=== PATIENT | male | born 1985 | race Caucasian/White ===

== ENCOUNTER 2017-03-15 01:57 | Emergency (ER) | payer OTHER ==
[2017-03-15 02:12] VITALS: BP 124/78; PULSE 72; RESP 18; TEMP 98.1; O2SAT 100
--- NOTE | 2017-03-15 02:45 | ED PDOC ---
Upper Extremity Pain/Injury Time Seen by Provider: 03/15/17 02:19 Chief Complaint (Nursing): Finger,Hand,&Wrist Chief Complaint (Provider): Right hand injury History Per: Patient History/Exam Limitations: no limitations Onset/Duration Of Symptoms: Hrs (x3) Current Symptoms Are (Timing): Still Present Additional Complaint(s): Juancarlos is a 32 y/o male who presents to the ED for evaluation of a hand laceration, sustained around 11:30PM. Patient states he tripped and fell on a wine glass, breaking the fall with his right arm. His hand broke the wine glass , and he had to pull glass pieces from the wound. Last tetanus was 2-3 years ago. PMD: None Past Medical History Reviewed: Historical Data, Nursing Documentation, Vital Signs Vital Signs: Last Vital Signs Temp 98.1 F 03/15/17 02:09 Pulse 72 03/15/17 02:09 Resp 18 03/15/17 02:09 BP 124/78 03/15/17 02:09 Pulse Ox 100 03/15/17 02:09 - Medical History PMH: No Chronic Diseases - Surgical History Other surgeries: Ankle and knee surgery - Family History Family History: States: Unknown Family Hx - Social History Current smoker - smoking cessation education provided: No Alcohol: Social Drugs: Denies - Immunization History Hx Tetanus Toxoid Vaccination: Yes - Allergies Allergies/Adverse Reactions: Allergies Allergy/AdvReac Type Severity Reaction Status Date / Time shellfish derived Allergy ITCHING Verified 03/15/17 02:09 Review of Systems ROS Statement: Except As Marked, All Systems Reviewed And Found Negative Skin: Positive for: Lesions (Laceration to right hand) Physical Exam - Reviewed Nursing Documentation Reviewed: Yes Vital Signs Reviewed: Yes - Physical Exam Appears: Positive for: Well, Non-toxic, No Acute Distress Head Exam: Positive for: ATRAUMATIC, NORMAL INSPECTION, NORMOCEPHALIC Skin: Positive for: Normal Color, Warm, Dry Eye Exam: Positive for: EOMI, Normal appearance, PERRL Neck: Positive for: Normal, Supple Cardiovascular/Chest: Positive for: Regular Rate, Rhythm. Negative for: Murmur Respiratory: Positive for: Normal Breath Sounds. Negative for: Respiratory Distress Extremity: Positive for: Normal ROM, Other (2 cm transverse laceration to the dorsum of the right hand. Tendons appear intact. Active bleeding is controlled.) Neurologic/Psych: Positive for: Alert, Oriented (x3). Negative for: Motor/ Sensory Deficits - ECG O2 Sat by Pulse Oximetry: 100 (RA) Pulse Ox Interpretation: Normal Medical Decision Making Medical Decision Making: Initial Impression: Laceration of hand, rule out foreign body Time: 2:30 Initial Plan: --X-Ray Right Hand --Ordered Lidocaine 1% --Laceration to be repaired X-Ray reviewed by me: appears normal, no abnormal findings, no foreign bodies. Scribe Attestation: Documented by Tita Dyer, acting as a scribe for Kvng Andrea MD Provider Scribe Attestation: All medical record entries made by the Scribe were at my direction and personally dictated by me. I have reviewed the chart and agree that the record accurately reflects my personal performance of the history, physical exam, medical decision making, and the department course for this patient. I have also personally directed, reviewed, and agree with the discharge instructions and disposition. Disposition - Clinical Impression Clinical Impression: Laceration of hand - Patient ED Disposition Is Patient to be Admitted: No Counseled Patient/Family Regarding: Studies Performed, Diagnosis - Disposition Referrals: Anjum Villela MD [Medical Doctor] - Disposition: Routine/Home Disposition Time: 04:11 Condition: GOOD Additional Instructions: Take motrin for pain. Apply ice for 1-2 days. Keep area dry and clean for 2 days. Follow up with hand specialist within 1 week. Follow up with your PCP or return for suture removal in 10 days. Instructions: Laceration (ED), Care For Your Stitches (ED)
[2017-03-15] MEDS ORDERED: Lidocaine 1% Inj (20ml) IJ ONE (02:57)
[2017-03-15] MEDS ORDERED: Lidocaine 1% Inj (20ml) ONE (03:09)
--- NOTE | 2017-03-15 04:16 | ED PDOC ---
ED Additional Note - Date & Time of Evaluation Date of Evaluation: 03/15/17 Time of Evaluation: 04:14 Procedures - Time-Out Type of Procedure: laceration repair Site of Procedure: right dorsal hand Correct Patient (with visual ID + MR# on ID Band): Yes Correct Procedure: Yes Correct Site Marked: Yes X-Ray Marked: Yes Medication Reconciliation / Bloodwork / Allergies Checked: Yes - Laceration/Wound Repair Right Dorsal Hand Wound Length (cm): 3 Wound's Depth, Shape: superficial Wound Explored: no foreign body removed Irrigated w/ Saline (ccs): 500 Anesthesia: 1% Lidocaine Volume Anesthetic (ccs): 4 Wound Debrided: moderate Wound Repaired With: Sutures Suture Size/Type: 5:0, nylon Number of Sutures: 4 Wound Complexity: Simple Sterile Dressing Applied?: Yes Splint Applied?: No Sling Applied?: No
--- NOTE | 2017-03-15 09:40 | RAD ---
PROCEDURE: Right Hand Radiographs. HISTORY: hand injury COMPARISON: None. FINDINGS: BONES: Normal. No fracture. Two views of the right hand were performed. JOINTS: Normal. No osteoarthritic changes. SOFT TISSUES: Normal. OTHER FINDINGS: None. IMPRESSION: Normal right hand radiographs.
== END 2017-03-15 04:21 | disposition home or self-care (01) ==
LOC: H.ER 01:57
DX: S61.411A Laceration without foreign body of right hand, initial encounter (principal); W25.XXXA Contact with sharp glass, initial encounter; Y92.89 Other specified places as the place of occurrence of the external cause